=== PATIENT | male | born 1980 | race Hispanic/Latino ===

== ENCOUNTER 2017-03-07 09:21 | Outpatient (CLI) | payer BC ==
--- NOTE | 2017-03-07 14:44 | RAD ---
LEFT KNEE 4 VIEWS: DATE: 03/07/17. FINDINGS: The knee joint itself appears normal. There is, however, a chunk of bone seen at the inferior tip o f the patella that suggests an old avulsion injury here. There is no joint effusion. IMPRESSION: Old injury to the inferior pole of the patella. POS: HOME
== END 2017-03-07 09:22 | disposition home or self-care (01) ==
LOC: BURRAD 09:21
PROVIDERS: ATTEND Physician Assistant
DX: G89.29 Other chronic pain (principal); Z87.828 Personal history of other (healed) physical injury and trauma